=== PATIENT | male | born 1950 | race Asian ===

== ENCOUNTER 2022-02-11 14:12 | Outpatient (CLI) | payer BC, SELFPAY ==
--- NOTE | 2022-02-11 14:24 | XR_ITS ---
WS: [id number] Exam: XR chest 2V* 96241 Date/Time of Exam: 02/11/2022 2:25 PM Reason For Exam: weight loss No priors. The lungs are clear and hyperinflated. Normal cardiomediastinal silhouette. There is tortuosity of th e thoracic aorta. No pleural effusions. Numerous old right-sided rib fractures. Bony elements are oth erwise intact. Mild levoscoliosis of the T-spine and minimal DJD. XR/XR chest 2V* 25020 IMPRESSION: 1. Pulmonary hyperinflation which might indicate obstructive lung disease. No a cute cardiopulmonary finding.
== END 2022-02-11 14:13 | disposition home or self-care (01) ==
LOC: RAD 14:16
PROVIDERS: PCP Family Medicine; Visit Provider Family Medicine
DX: R63.4 Abnormal weight loss (principal)
CPT/HCPCS: 71046; 80053; 80061; 82378; 83036; 84153; 84443; 85025

== ENCOUNTER → 2022-02-19 10:36 | Outpatient (BNVA) | payer BC, SELFPAY | PROVIDERS: PCP Family Medicine; Visit Provider Family Medicine | DX: R63.4 Abnormal weight loss (principal) | CPT/HCPCS: 86803; 87806 ==

== ENCOUNTER 2022-04-12 06:10 | Day surgery (SDC) | payer BC, SELFPAY ==
[2022-04-10 14:03] VITALS: BMI 22.3
[2022-04-12 06:34] VITALS: BP 118/77; PULSE 88; RESP 18; TEMP 36.2; O2SAT 98
[2022-04-12] MEDS: sodium chloride 0.9% 1,000 ML 30 ML IV (06:39)
--- NOTE | 2022-04-12 06:47 | ANES.PREANE2 ---
Pre-Anesthetic Assessment Height/Weight: Height 1.8 m Weight 72.575 kg Temp Pulse Resp BP Pulse Ox O2 Del Method 97.2 F L 88 18 118/77 98 04/12/22 06:34 04/12/22 06:34 04/12/22 06:34 04/12/22 06:34 04/12/22 06:34 04/12/22 06:34 Preop Diagnosis: Screening colonoscopy Operation Date: 04/12/22 07:30 Proposed Procedures p Colonoscopy/EGD 24642, 70424,z12.11,R63.4(Not Applicable) - Gurdeep Vital MD s EGD(Not Applicable) - Gurdeep Vital MD Was Beta Yohannes taken within 24 hours: N/A Was Clonidine taken within 24 hours: N/A Last intake: Intake Last Liquid Date 04/11/22 Last Liquid Time 04:00 Last Solid Date 04/10/22 Last Solid Time 08:00 Social No alcohol and No tobacco Exam alert, oriented x 3, clear to auscultation bilaterally and regular rate & rhythm Airway Submandibular: within normal limits Cervical ROM: within normal limits Dentition: full Pulmonary None reported CV/HEM None reported None reported Hepatic None reported GI None reported Metabolic None reported Musc/skel Lower Back Pain Neuropsych None reported Anesthetic Plan ASA status: 2 Anesthesia: MAC Risk of > 500 ml blood loss (7ml/kg in children): No Medications/Allergies Home Medications Medication Instructions Recorded Confirmed Last Taken Type peg 3350-electrolytes 236 240 ml PO Q10M #4,000 mL 02/21/22 04/12/22 04/11/22 Rx gram-22.74 gram-6.74 gram-5.86 gram solution (Golytely) Allergies Allergy/AdvReac Type Severity Reaction Status Date / Time amoxicillin Allergy Intermediate ADR/ALGY-Pa Verified 02/22/22 06:57 lpitations Current Medications Generic Name Dose Route Start Last Admin Trade Name Freq PRN Reason Stop Dose Admin Sodium Chloride 1,000 mls @ 30 mls/hr 04/12/22 06:30 04/12/22 06:39 Sodium Chloride 0.9% IV 04/13/22 06:29 30 mls/hr .Q24H JOHNY Administration PFSH Anesthesia Medical History History of femur fracture Surgical repair History of rib fracture Testicular cancer Diagnosed in 1996 - underwent radiation Surgical History History of orchiectomy, unilateral On left Family History Mother Hypertension Father Diabetes Denies family history of CAD (coronary artery disease) Clotting disorder Dementia Hyperlipidemia Psychiatric illness Chronic kidney disease (CKD) Suicide Anesthesia complication Bleeding disorder Family history of premature coronary artery disease Lung disease Cancer Stroke Social History Smoking and tobacco status: former smoker Quit status (tobacco): has quit using tobacco Year quit tobacco: 1970 Alcohol intake: never Adopted: No Caregiver/support person: No Lives independently: Yes Household members: spouse Housing: House Marital status: Number of children: 2 Number of grandchildren: 1 service: No Current occupational status: retired Data Anesthesia Cardiac Studies: No Data to Display
--- NOTE | 2022-04-12 07:07 | W.PM.OPSFHP ---
Same Day Surgery H&P Indication for Procedure/HPI DATE OF PROCEDURE: April 12, 2022 CHIEF COMPLAINT/INDICATIONFOR SURGICAL PROCEDURE: Weight loss PREOP DIAGNOSIS: Screening colonoscopy PLANNED PROCEDURE: Operation Date: 04/12/22 07:30 Proposed Procedures p Colonoscopy/EGD 42466, 76203,z12.11,R63.4(Not Applicable) - Gurdeep Vital MD s EGD(Not Applicable) - Gurdeep Vital MD This is a pleasant 72 years old gentleman referred to my practice for screening colonoscopy yet in addition to that he does have history of nonintentional weight loss and an EGD was also requested to rule out potential underlying neoplasm. ROS All systems have been reviewed negative except as for the above or per problem list. Medications/Allergies* Allergies/Adverse Reactions Allergy/AdvReac Type Severity Reaction Status Date / Time amoxicillin Allergy Intermediate ADR/ALGY-Pa Verified 04/12/22 07:07 lpitations Current Medications: Generic Name Dose Route Start Last Admin Trade Name Freq PRN Reason Stop Dose Admin Sodium Chloride 1,000 mls @ 30 mls/hr 04/12/22 06:30 04/12/22 06:39 Sodium Chloride 0.9% IV 04/13/22 06:29 30 mls/hr .Q24H JOHNY Administration Pertinent History/Comorbid Conditions* Medical History (Updated 02/22/22 @ 06:57 by Gurdeep Vital MD) History of femur fracture Surgical repair History of rib fracture Testicular cancer Diagnosed in 1996 - underwent radiation Surgical History (Updated 02/11/22 @ 13:37 by Laura Key DO) History of orchiectomy, unilateral On left Family History (Updated 02/11/22 @ 13:25 by Beverly Andrea) Diabetes Father Hypertension Mother Denies family history of CAD (coronary artery disease) Clotting disorder Dementia Hyperlipidemia Psychiatric illness Chronic kidney disease (CKD) Suicide Anesthesia complication Bleeding disorder Family history of premature coronary artery disease Lung disease Cancer Stroke Social History Smoking and tobacco status: former smoker Quit status (tobacco): has quit using tobacco Year quit tobacco: 1970 Alcohol intake: never Adopted: No Caregiver/support person: No Lives independently: Yes Household members: spouse Housing: House Marital status: Number of children: 2 Number of grandchildren: 1 service: No Current occupational status: retired Pertinent Exam Findings alert, oriented x 3, regular rate & rhythm and procedure specific exam findings (Abdominal exam nontender nondistended soft) Recommendations Surgery/Procedure today (EGD and colonoscopy) Other Plans: Plan of care; After thorough history and physical examination and reviewing the chart, plan to perform a diagnostic esophagogastroduodenoscopy and colonoscopy with possible biopsy and possible polypectomy. I discussed with the patient in detail the risks,benefits,alternatives and indications.The risk of aspiration, bleeding, soft tissue injury, perforation of the stomach/esophagus/colon missed lesions and other potential concomitant complications were explained to the patient in details also the potential need for Thoracotomy and or Laproscoy/Laparotomy to repair any related complications including but not limited to colectomy and or Closotomy. The patient understood this well and did agree to proceed. Rationale was carefully and clearly discussed with the patient.Appropriate informed consent have been reviewed and signed Verbal and written Instructions were given to the patient for colonoscopy prep Coding Level of Care Code Acute Supervisor Seaming for Raya Langford
[2022-04-12 07:42] VITALS: BP 108/70; PULSE 78; RESP 12; TEMP 36.2; O2SAT 98
--- NOTE | 2022-04-12 07:45 | ANE.PACU2 ---
Inpatient post-anesthesia follow up: Airway intact: Yes Vital signs: Temperature 97.2 F Pulse Rate 88 Respiratory Rate 18 Blood Pressure 118/77 Pulse Oximetry 98 Oxygen Delivery Me thod Room Air Oxygen Flow Rate Fraction of Inspir ed Oxygen Hydration adequate: Yes Nausea and vomiting: No Pain level: 1 Mental status: Baseline
[2022-04-12 07:54] VITALS: BP 110/78; PULSE 83; RESP 14; O2SAT 99
[2022-04-12 08:05] VITALS: BP 122/88; PULSE 72; RESP 16; O2SAT 100
== END 2022-04-12 08:20 | disposition home or self-care (01) ==
PROVIDERS: PCP Family Medicine; Visit Provider Surgery
PROC: 0DJD8ZZ Inspection of Lower Intestinal Tract, Via Natural or Artificial Opening Endoscopic (ICD-10-PCS; CPT 45378; principal; 2022-04-12 07:30)
PROC: 0DJ08ZZ Inspection of Upper Intestinal Tract, Via Natural or Artificial Opening Endoscopic (ICD-10-PCS; CPT 43235; 2022-04-12 07:30)
DX: Z12.11 Encounter for screening for malignant neoplasm of colon (principal); K21.00 Gastro-esophageal reflux disease with esophagitis, without bleeding; K29.70 Gastritis, unspecified, without bleeding; Z87.891 Personal history of nicotine dependence
CPT/HCPCS: 43239; 45378; 88305; 88342; J2704; J7030

== ENCOUNTER → 2025-04-14 11:08 | Outpatient (BNVA) | payer BC, SELFPAY | PROVIDERS: PCP Family Medicine; Visit Provider Family Medicine | DX: R35.1 Nocturia (principal); Z13.6 Encounter for screening for cardiovascular disorders | CPT/HCPCS: 80053; 80061; 84153; 85025 ==